=== PATIENT | female | born 1965 | race African-American/Black ===

== ENCOUNTER 2023-10-08 05:34 | Emergency (ER) | payer OTHER ==
[~2023-10-08] VITALS: Ht 170.2 cm; Wt 108.9 kg
[2023-10-08] MEDS ORDERED: DOLOGESIC 500-1 EACH PO (08:15)
== END 2023-10-08 08:21 | disposition home or self-care (01) ==
LOC: ER 05:35
DX: T59.891A Toxic effect of other specified gases, fumes and vapors, accidental (unintentional), initial encounter (principal); R51.9 Headache, unspecified; Y92.813 Airplane as the place of occurrence of the external cause; I10 Essential (primary) hypertension